=== PATIENT | male | born 1940 | race Caucasian/White ===

== ENCOUNTER 2018-03-03 11:35 | Emergency (ER) | payer MEDICARE ==
[2018-03-03] MEDS ORDERED: ASPIRIN 81 MG CHEWABLE TABLET PO ONE (11:36)
--- NOTE | 2018-03-03 11:42 | Emergency Department Record ---
History of Present Illness - General Stated Complaint: CHEST PAIN Time Seen by Provider: 03/03/18 11:36 Source: Patient - History of Present Illness Initial Comments: The patient states that he has had exertional chest tightness and epigastric tightness along with difficulty breathing for the past 2 months. The symptoms have always resolved with rest. He gets them daily, and with minimal exertion, "I can't even make my bed anymore without getting chest tightness." Yesterday he went to his PCP office. He was told he should come to the emergency department. He again had symptoms today, so he decided to come here. All symptoms have resolved at rest. Risks include elevated blood pressure and elevated cholesterol. His dad had an UT in his 50's. He sleeps flat in bed and denies PND, orthopnea. He is a former cigar smoker for 15 years. - Related Data Home Medications Medication Instructions Recorded Confirmed Last Taken Aspirin [Aspir-Low] 81 mg PO DAILY 03/03/18 03/03/18 03/03/18 Finasteride [Proscar] 10 mg PO DAILY 03/03/18 03/03/18 03/03/18 Nebivolol HCl [Bystolic] 10 mg PO DAILY 03/03/18 03/03/18 03/03/18 [place]-3 Fatty Acids/Fish Oil [Fish 1 cap PO DAILY 03/03/18 03/03/18 03/03/18 Oil 1,000 mg Capsule] Rosuvastatin Calcium [Crestor] 5 mg PO DAILY 03/03/18 03/03/18 03/03/18 Allergies Allergy/AdvReac Type Severity Reaction Status Date / Time No Known Drug Allergies Allergy Verified 03/03/18 11:38 Review of Systems Reviewed: No additional complaints except as noted below Constitutional: Reports: As per HPI. Denies: Chills, Fever, Malaise, Night sweats, Weakness, Weight change Eyes: Reports: As per HPI. Denies: Eye discharge, Eye pain, Photophobia, Vision change ENT: Reports: As per HPI. Denies: Congestion, Dental pain, Ear pain, Epistaxis , Hearing loss, Throat pain Respiratory: Reports: As per HPI. Denies: Cough, Dyspnea, Hemoptysis, Stridor, Wheezes Cardiovascular: Reports: As per HPI. Denies: Arrhythmia, Chest pain, Dyspnea on exertion, Edema, Murmurs, Orthopnea, Palpitations, Paroxysmal nocturnal dyspnea, Rheumatic Fever, Syncope Endocrine: Reports: As per HPI. Denies: Fatigue, Heat or cold intolerance, Polydipsia, Polyuria Gastrointestinal: Reports: As per HPI. Denies: Abdominal pain, Constipation, Diarrhea, Hematemesis, Hematochezia, Melena, Nausea, Vomiting Genitourinary: Reports: As per HPI. Denies: Dysuria, Frequency, Hematuria, Incontinence, Retention, Testicular pain, Testicular mass, Urgency Musculoskeletal: Reports: As per HPI. Denies: Arthralgia, Back pain, Gout, Joint swelling, Myalgia, Neck pain Skin: Reports: As per HPI. Denies: Bruising, Change in color, Change in hair/ nails, Lesions, Pruritus, Rash Neurological: Reports: As per HPI. Denies: Abnormal gait, Confusion, Headache, Numbness, Paresthesias, Seizure, Tingling, Tremors, Vertigo, Weakness Psychiatric: Reports: As per HPI. Denies: Anxiety, Auditory hallucinations, Depression, Homicidal thoughts, Suicidal thoughts, Visual hallucinations Hematological/Lymphatic: Reports: As per HPI. Denies: Anemia, Blood Clots, Easy bleeding, Easy bruising, Swollen glands Past Medical History - SOCIAL HISTORY Smoking Status: Former smoker (cigars) Physical Exam - General General Appearance: Alert, Oriented x3, Cooperative, No acute distress - Head Head exam: Normal inspection - Eye Eye exam: Normal appearance, PERRL, EOMI. negative: Conjunctival injection, Nystagmus Pupils: Normal accommodation - ENT ENT exam: Normal exam, Mucous membranes moist, Normal external ear exam, Normal orophraynx, TM's normal bilaterally. negative: Mucous membranes dry Ear exam: Normal external inspection. negative: External canal tenderness Nasal Exam: Normal inspection. negative: Discharge, Sinus tenderness Mouth exam: Normal external inspection, Tongue normal Teeth exam: Normal inspection. negative: Dental caries Throat exam: Normal inspection. negative: Tonsillar erythema, Tonsillar exudate - Neck Neck exam: Normal inspection, Full ROM. negative: Lymphadenopathy, Meningismus , Tenderness - Respiratory Respiratory exam: Normal lung sounds bilaterally, Rales (fine rales 1/[address] way up lung andrews bilaterally. ). negative: Respiratory distress - Cardiovascular Cardiovascular Exam: Regular rate, Normal rhythm, Normal heart sounds - GI/Abdominal GI/Abdominal exam: Soft, Normal bowel sounds. negative: Tenderness - Rectal Rectal exam: Deferred - exam: Deferred - Extremities Extremities exam: Normal inspection, Full ROM, Normal capillary refill, Pedal edema (bilateral trace to 1+ ankle edema). negative: Calf tenderness, Tenderness - Back Back exam: Reports: Normal inspection, Full ROM. Denies: Muscle spasm, Rash noted, Tenderness - Neurological Neurological exam: Alert, Normal gait, Oriented X3, Reflexes normal - Psychiatric Psychiatric exam: Normal affect, Normal mood - Skin Skin exam: Dry, Intact, Normal color, Warm Course - Reevaluation(s) Reevaluation #1: Patient remains chest pain free at this time. Studies pending. 03/03/18 12:32 Reevaluation #2: Discussed results with patient and his son who request [facility]. No prior records of old EKG's or labs are available at this time. PCP office not responding despite several attempts. Patient continues to be pain free at rest. Portable CXR preliminary read by me as NEG. 03/03/18 12:53 Reevaluation #3: Discussed with Dr. Ankita Oviedo who accepts patient for consult with admission to Internal Medicine. Paged Dr. Kaplan medicine attending and Dr. Gordon accepts him in transfer. Patient had 4000 unite heparin bolus and is in a nitro drip at 5 mics. Continues to be symptom free. 03/03/18 13:09 03/03/18 13:56 03/03/18 13:58 Medical Decision Making - Management Options MDM Management: Additional Work-up Planned (e.g. ADM/Transfer/OP Study) ( Transfer to [facility] Dr. Kaplan internal medicine with Dr. Oviedo salon sales consultant) - Data Complexity MDM Data: Labs Ordered and/or Reviewed, X-Ray Ordered and/or Reviewed, EKG Ordered and/or Reviewed (LBBB no old for comparison) - Lab Data Result diagrams: 03/03/18 11:45 03/03/18 11:45 Disposition Disposition: Transfer Clinical Impression: Unstable angina, Elevated troponin, Left bundle branch block (LBBB) Disposition: Acute Care Hospital Transfer Decision to Admit: Admit from ER Transfer To: [facility] Reason For Transfer: Group Director Accepting Physician: ; Dr. Oviedo consulting medical editor Time Discussed w/Accepting Physician: 13:12 Condition: (2) Stable Quality - Quality Measures Quality Measures: N/A - Blood Pressure Screening Does Patient Have Any of the Following: No Blood Pressure Classification: Hypertensive Reading Systolic Measurement: 195 Diastolic Measurement: 107 Screening for High Blood Pressure: Patient Exclusion, Hx of HTN [[id number]]
[2018-03-03 12:03] LABS: BASO % 0.5 % (0-6); EOS % 1.1 % (0-6); HEMATOCRIT 44.1 % (42.0-52.0); HEMOGLOBIN 14.9 gm/dl (14.0-18.0); MEAN CELL VOLUME 95.2 fl (81-97); MEAN CORPUSCULAR HEMOGLOBIN 32.2 pg (27-33); MEAN CORPUSCULAR HGB CONC 33.8 g/dl (32-36); MEAN PLATELET VOLUME 12.1 fl (7.4-10.4); MONO % 7.4 % (0-9); PLATELET COUNT 195 K/uL (130-400); RED BLOOD COUNT 4.63 M/uL (4.40-5.70); RED CELL DISTRIBUTION WIDTH 13.9 % (11.5-14.5)
[2018-03-03 12:11] LABS: BLOOD UREA NITROGEN 21 mg/dL (8-23); CREATININE 1.1 mg/dL (0.7-1.2); EST GLOMERULAR FILTRATION RATE > 60 mL/min; TOTAL PROTEIN 7.5 g/dL (6.6-8.7)
[2018-03-03 12:13] LABS: GLUCOSE,RANDOM 118 mg/dL (74-109)
[2018-03-03 12:14] LABS: INR 1.1; PROTHROMBIN TIME (PATIENT) 11.1 SECONDS (9.5-12.1)
[2018-03-03 12:16] LABS: ALB/GLOB RATIO 1.4 (1.1-1.8); ALBUMIN 4.4 g/dL (4.0-5.0); ALKALINE PHOSPHATASE 59 U/L (55-149); ALT/SGPT 21 U/L (<41); AST/SGOT 26 U/L (10.0-50.0)
[2018-03-03 12:26] LABS: THYROID STIMULATING HORMONE 1.42 uIU/mL (0.270-4.20)
[2018-03-03] MEDS ORDERED: HEPARIN SODIUM 1000 UNIT/1 ML 10ML VIAL IVP ONE (13:08)
[2018-03-03] MEDS ORDERED: NITROGLYCERIN/D5W 50 MG/250 ML ML IV SCH (13:45)
--- NOTE | 2018-03-04 21:36 | RADIOLOGY REPORT ---
EXAM: CHEST 1 VIEW HISTORY: DIFFICULTY IN BREATHING. TECHNIQUE: A portable AP upright view of the chest was performed. FINDINGS: Heart size is normal. No pulmonary vascular congestion. Calcified granuloma right mid lung. The osseous structures are normal. IMPRESSION: NO ACUTE PULMONARY DISEASE PROCESS. JOB NUMBER: [id number] [facility]
== END 2018-03-03 14:30 | disposition short-term general hospital (02) ==
LOC: ER 11:35
DX: I20.0 Unstable angina (principal); I44.7 Left bundle-branch block, unspecified; R79.89 Other specified abnormal findings of blood chemistry; R06.00 Dyspnea, unspecified; R60.0 Localized edema; I10 Essential (primary) hypertension; Z87.891 Personal history of nicotine dependence
CPT/HCPCS: 71045; 80053; 83880; 84443; 84484; 85025; 85379; 85610; 85730; 93005; 93010; 96365; 96375; 99285